=== PATIENT | male | born 1960 | race Caucasian/White ===

== ENCOUNTER → 2021-09-02 | Day surgery (SDC) | payer OTHER ==
[~2021-09-02] VITALS: Ht 175.3 cm; Wt 111.1 kg
[~2021-09-02] MED LIST: ASPIRIN EC81 MG PO; BISOPROLOL FUMAR5 MG PO; CRESTOR40 M1 PO; FLEXERIL5 MG PO; GABAPENTIN800 MG PO; GLUCOTROL5 MG PO; LEVOTHYROXINE200 MC2 PO; METFORMIN HCL1000 MG PO; NABUMETONE500 MG PO; NORCO 5-325 TA1 EACH PO; NORVASC5 MG PO; OMEPRAZOLE40 MG PO; PERCOCET 7.5/321 TAB PO; VITAMIN D3 PO; ZESTRIL5 MG PO
[2021-09-02 08:53] LABS: HCT 42.7 % (42.0-52.0); HGB 13.8 g/dl (13.2-18.0); MCH 27.3 pg (25.0-31.0); MCHC 32.3 g/dL (32.0-36.0); MCV 84.6 fL (78.0-100.0); MPV 10.2 fL (6.0-9.5); RBC 5.05 M/uL (4.70-6.00); RDW 15.7 % (11.5-14.0)
[2021-09-02 09:13] LABS: BILIRUBIN - TOTAL 0.6 mg/dL (0.2-1.0); BUN/CREAT RATIO (CALC) 13.6 RATIO; CREATININE 0.88 mg/dL (0.67-1.17); GLOBULIN (CALCULATION) 3.5 g/dL; POTASSIUM 3.8 mmol/L (3.5-5.1); TOTAL PROTEIN 7.5 g/dL (6.4-8.2)
== END | disposition home or self-care (01) ==
LOC: FAS 08:00
PROVIDERS: Surgery
DX: K64.1 Second degree hemorrhoids (principal); K64.4 Residual hemorrhoidal skin tags; F17.210 Nicotine dependence, cigarettes, uncomplicated; Z79.82 Long term (current) use of aspirin; Z79.84 Long term (current) use of oral hypoglycemic drugs
CPT/HCPCS: 36415; 80053; 82962; J1100; J2704; J7120